=== PATIENT | male | born 1980 | race Caucasian/White ===

== ENCOUNTER 2018-03-25 00:55 | Emergency (ER) | payer BC ==
[2018-03-25] MEDS ORDERED: LORazepam 1 MG Tab PO ONE (00:56)
[2018-03-25] MEDS ORDERED: Aspirin 81 MG Tab.Chew ONE (01:02)
[2018-03-25] MEDS ORDERED: Aspirin 81 MG Tab.Chew PO ONE (01:03)
--- NOTE | 2018-03-25 01:28 | EDM.PDOC ---
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 states pt was very sweaty and bit unsteady and she had to help him get to the car and she drove here. presently pt states feels ok pain better was given ASA. Left Anterior Chest Pain Score (Numeric/FACES): 6 - Related Data Allergies Allergy/AdvReac Type Severity Reaction Status Date / Time No Known Allergies Allergy Verified 03/25/18 01:29 Home Meds: Home Meds . [No Known Home Meds] 03/25/18 [History] ED ROS GENERAL - Review of Systems Review Of Systems: ROS reveals no pertinent complaints other than HPI. ED EXAM, GENERAL - Physical Exam Exam: See Below Exam Limited By: No Limitations General Appearance: Alert, WD/WN, No Apparent Distress, Anxious, Mild Distress Eye Exam: Bilateral Eye: PERRL (pupils ER @ 5mm) Ears: Hearing Grossly Normal Throat/Mouth: Normal Voice, No Airway Compromise Head: Atraumatic Neck: Non-Tender, Full Range of Motion Respiratory/Chest: No Respiratory Distress Cardiovascular: Regular Rate, Rhythm GI/Abdominal: Soft, Non-Tender Neurological: Alert, Oriented, Normal Cognition, Normal Gait, No Motor/Sensory Deficits Psychiatric: Anxious Skin Exam: Warm, Dry, Normal Color Lymphatic: No Adenopathy Course - Vital Signs Last Recorded V/S: Last Vital Signs Temp 36.4 C 03/25/18 01:18 Pulse 67 03/25/18 01:18 Resp 16 03/25/18 01:18 BP 128/81 03/25/18 01:18 Pulse Ox 100 03/25/18 01:18 - Orders/Labs/Meds Orders: Active Orders 24 hr Category Date Time Status EKG Documentation Completion [RC] STAT Care 03/25/18 01:21 Active Meclizine [Antivert] Med 03/25/18 02:50 Once 12.5 mg PO ONETIME ONE Labs: Laboratory Tests 03/25/18 03/25/18 03/25/18 Range/Units 01:10 01:10 01:10 WBC 8.9 (5.0-10.0) 10^3/uL RBC 4.58 L (4.6-6.2) 10^6/uL Hgb 14.2 (14.0-18.0) g/dL Hct 39.7 L (40.0-54.0) % MCV 86.7 (80-100) fL MCH 31.0 (27.0-34.0) pg MCHC 35.8 H (33.0-35.0) g/dL Plt Count 197 (150-450) 10^3/uL Neut % (Auto) 47.2 (42.2-75.2) % Lymph % (Auto) 40.8 (20.5-50.1) % [place] % (Auto) 8.5 H (2-8) % Eos % (Auto) 3.1 H (1.0-3.0) % Baso % (Auto) 0.4 (0.0-1.0) % D-Dimer, Quantitative < 100 (0-400) ng/mL Sodium 137 (135-145) mmol/L Potassium 3.2 L (3.6-5.0) mmol/L Chloride 104 (101-111) mmol/L Carbon Dioxide 27.0 (21.0-31.0) mmol/L Anion Gap 9.2 BUN 20 H (7-18) mg/dL Creatinine 1.2 (0.6-1.3) mg/dL Est Cr Clr Drug Dosing 86.18 mL/min Estimated GFR (MDRD) > 60 BUN/Creatinine Ratio 16.66 Glucose 117 H (74-105) mg/dL Calcium 9.0 (8.4-10.2) mg/dl Total Bilirubin 0.9 (0.2-1.0) mg/dL AST 33 (10-42) IU/L ALT 32 (10-60) IU/L Alkaline Phosphatase 59 (42-121) IU/L Troponin I < 0.02 (0.00-0.02) ng/ml Total Protein 6.8 (6.7-8.2) g/dl Albumin 4.1 (3.2-5.5) g/dl Globulin 2.7 Albumin/Globulin Ratio 1.52 Meds: Medications Discontinued Medications Generic Name Dose Route Start Last Admin Trade Name Evi PRN Reason Stop Dose Admin Aspirin Confirm 03/25/18 01:02 03/25/18 01:06 Aspirin Administered 03/25/18 01:03 Not Given Dose 324 mg .ROUTE .STK-MED ONE Aspirin 324 mg 03/25/18 01:03 03/25/18 01:05 Aspirin PO 03/25/18 01:04 324 mg ONETIME ONE Administration - Re-Assessments/Exams Free Text/Narrative Re-Assessment/Exam: 03/25/18 02:04 results discussed with pt & spouse. 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 03/25/18 02:50 re-exam; still pain free but feel little dizzy when moves. spouse states pt is under lot of stress and over worked. Departure - Departure Time of Disposition: 02:51 Disposition: Home, Self-Care 01 Condition: Good Clinical Impression: Atypical chest pain, Reaction, situational, acute, to stress Instructions: Nonspecific Chest Pain, [id number] Forms: ED Department Discharge Additional Instructions: 1) rest 2) see clinic in the morning for STRESS TEST. ECHOCARDIOGRAM. HOLTER MONITOR 3) return if there is any change or concern - My Orders Last 24 Hours: My Active Orders 03/25/18 01:21 EKG Documentation Completion [RC] STAT 03/25/18 02:50 Meclizine [Antivert] 12.5 mg PO ONETIME ONE - Assessment/Plan Last 24 Hours: My Active Orders 03/25/18 01:21 EKG Documentation Completion [RC] STAT 03/25/18 02:50 Meclizine [Antivert] 12.5 mg PO ONETIME ONE
[2018-03-25 01:40] LABS: CHLORIDE,CL 104 mmol/L (101-111); SODIUM,NA 137 mmol/L (135-145)
[2018-03-25] MEDS ORDERED: LORazepam 1 MG Tab ONE (02:52)
[2018-03-25] MEDS: Meclizine 12.5 MG Tab PO ONE ×2 (02:57→02:59)
[2018-03-25] MEDS ORDERED: Meclizine 12.5 MG Tab ONE (02:58)
--- NOTE | 2018-03-26 08:14 | EKG ---
03/25/2018- FARIDEH ENRIQUEZ - FINDINGS: EKG per my reading, shows sinus rhythm at a rate of 63. [facility] /[id number]
== END 2018-03-25 03:06 | disposition home or self-care (01) ==
LOC: DL.ED 00:55
DX: F43.0 Acute stress reaction (principal); R07.89 Other chest pain
CPT/HCPCS: 36415; 71045; 80053; 84484; 85025; 85379; 93005; 99285; A9270

== ENCOUNTER 2019-01-27 05:58 | Emergency (ER) | payer BC ==
--- NOTE | 2019-01-27 06:20 | EDM.PDOC ---
<Romero Arroyo - Last Filed: 01/27/19 06:16> ED HPI GENERAL MEDICAL PROBLEM - General Chief Complaint: Respiratory Problem Stated Complaint: LEFT SIDE NUMBNESS [id number] Time Seen by Provider: 01/27/19 06:16 Source of Information: Reports: Patient History Limitations: Reports: No Limitations - History of Present Illness INITIAL COMMENTS - FREE TEXT/NARRATIVE: woke up with left arm numbness, had same last year and eval' here with f/u stress [id number] all were told normal. just flew [employer] from [employer] 2 days ago. denies CP/SOB perse. 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 ED EXAM, GENERAL - Physical Exam Exam: See Below Exam Limited By: No Limitations General Appearance: Alert, WD/WN, Anxious, Mild Distress Ears: Hearing Grossly Normal Throat/Mouth: Normal Voice, No Airway Compromise Head: Atraumatic Neck: Non-Tender, Full Range of Motion Respiratory/Chest: No Respiratory Distress Cardiovascular: Regular Rate, Rhythm GI/Abdominal: Soft, Non-Tender Extremities: Normal Range of Motion Neurological: Alert, Oriented, Normal Cognition, Normal Gait, No Motor/Sensory Deficits Psychiatric: Normal Affect, Normal Mood Skin Exam: Warm, Dry, Normal Color Lymphatic: No Adenopathy Course - Vital Signs Last Recorded V/S: Last Vital Signs Temp 36.4 C 01/27/19 06:04 Pulse 78 01/27/19 06:04 Resp 19 01/27/19 06:04 BP 146/83 H 01/27/19 06:04 Pulse Ox 100 01/27/19 06:04 - Orders/Labs/Meds Orders: Active Orders 24 hr Category Date Time Status EKG 12 Lead [EKG Documentation Completion] [RC] STAT Care 01/27/19 06:11 Active Labs: Laboratory Tests 01/27/19 01/27/19 01/27/19 Range/Units 06:20 06:20 06:20 WBC 6.6 (5.0-10.0) 10^3/uL RBC 4.83 (4.6-6.2) 10^6/uL Hgb 14.7 (14.0-18.0) g/dL Hct 41.3 (40.0-54.0) % MCV 85.5 (80-100) fL MCH 30.4 (27.0-34.0) pg MCHC 35.6 H (33.0-35.0) g/dL Plt Count 205 (150-450) 10^3/uL Neut % (Auto) 53.4 (42.2-75.2) % Lymph % (Auto) 33.0 (20.5-50.1) % [place] % (Auto) 8.4 H (2-8) % Eos % (Auto) 4.4 H (1.0-3.0) % Baso % (Auto) 0.8 (0.0-1.0) % D-Dimer, Quantitative < 100 (0-400) ng/mL Sodium 137 (135-145) mmol/L Potassium 3.5 L (3.6-5.0) mmol/L Chloride 103 (101-111) mmol/L Carbon Dioxide 23.0 (21.0-31.0) mmol/L Anion Gap 14.5 BUN 14 (7-18) mg/dL Creatinine 1.1 (0.6-1.3) mg/dL Est Cr Clr Drug Dosing 93.09 mL/min Estimated GFR (MDRD) > 60 BUN/Creatinine Ratio 12.72 Glucose 101 (74-105) mg/dL Calcium 8.8 (8.4-10.2) mg/dl Total Bilirubin 1.2 H (0.2-1.0) mg/dL AST 44 H (10-42) IU/L ALT 53 (10-60) IU/L Alkaline Phosphatase 56 (42-121) IU/L Troponin I < 0.02 (0.00-0.02) ng/ml Total Protein 6.8 (6.7-8.2) g/dl Albumin 3.8 (3.2-5.5) g/dl Globulin 3.0 Albumin/Globulin Ratio 1.27 01/27/ Range/Units 09:01 WBC (5.0-10.0) 10^3/uL RBC (4.6-6.2) 10^6/uL Hgb (14.0-18.0) g/dL Hct (40.0-54.0) % MCV (80-100) fL MCH (27.0-34.0) pg MCHC (33.0-35.0) g/dL Plt Count (150-450) 10^3/uL Neut % (Auto) (42.2-75.2) % Lymph % (Auto) (20.5-50.1) % [place] % (Auto) (2-8) % Eos % (Auto) (1.0-3.0) % Baso % (Auto) (0.0-1.0) % D-Dimer, Quantitative (0-400) ng/mL Sodium (135-145) mmol/L Potassium (3.6-5.0) mmol/L Chloride (101-111) mmol/L Carbon Dioxide (21.0-31.0) mmol/L Anion Gap BUN (7-18) mg/dL Creatinine (0.6-1.3) mg/dL Est Cr Clr Drug Dosing mL/min Estimated GFR (MDRD) BUN/Creatinine Ratio Glucose (74-105) mg/dL Calcium (8.4-10.2) mg/dl Total Bilirubin (0.2-1.0) mg/dL AST (10-42) IU/L ALT (10-60) IU/L Alkaline Phosphatase (42-121) IU/L Troponin I < 0.02 (0.00-0.02) ng/ml Total Protein (6.7-8.2) g/dl Albumin (3.2-5.5) g/dl Globulin Albumin/Globulin Ratio Departure - Departure Disposition: Home, Self-Care 01 Clinical Impression: Left upper extremity numbness, Peripheral neuropathy - Discharge Information Instructions: Peripheral Neuropathy Forms: ED Department Discharge Care Plan Goals: The patient was advised of the examination, lab, EKG, chest x-ray and repeat lab results during the visit. The patient was encouraged to follow-up with his chiropractor or primary care facility for continued symptoms. If the patient has any additional symptoms or concerns, the patient should either return to the emergency department or visit his primary care facility. <Rigoberto Dumont M - Last Filed: 01/27/19 09:46> Course - Re-Assessments/Exams Free Text/Narrative Re-Assessment/Exam: 01/27/19 07:18 Patient care was taken over at shift change. The patient reports his left arm continues to have some numbness, but is feeling better than when he came into the ED. The patient reports he started noticing symptoms at about 0500 this morning with his symptoms continuing to about 0600 when he presented to the ED. Departure - Departure Time of Disposition: 09:43 Condition: Good - Discharge Information *PRESCRIPTION DRUG MONITORING PROGRAM REVIEWED*: Not Applicable *COPY OF PRESCRIPTION DRUG MONITORING REPORT IN PATIENT ALFRED: Not Applicable
[2019-01-27 06:52] LABS: ANION GAP 14.5; CHLORIDE,CL 103 mmol/L (101-111); SODIUM,NA 137 mmol/L (135-145)
== END 2019-01-27 09:50 | disposition home or self-care (01) ==
LOC: DL.ED 05:58
DX: R20.0 Anesthesia of skin (principal); G62.9 Polyneuropathy, unspecified; E78.00 Pure hypercholesterolemia, unspecified; Z79.82 Long term (current) use of aspirin; Z79.899 Other long term (current) drug therapy
CPT/HCPCS: 36415; 71045; 80053; 84484; 85025; 85379; 93005; 99284-25

== ENCOUNTER 2020-12-26 01:10 | Emergency (ER) | payer BC ==
--- NOTE | 2020-12-26 01:20 | EDM.PDOC ---
ED HPI GENERAL MEDICAL PROBLEM - General Chief Complaint: Cardiovascular Problem Stated Complaint: HIGH BLOOD PRESSURE Time Seen by Provider: 12/26/20 01:20 Source of Information: Reports: Patient, Old Records, RN, RN Notes Reviewed History Limitations: Reports: No Limitations - History of Present Illness INITIAL COMMENTS - FREE TEXT/NARRATIVE: Patient is a 40-year-old male who presents to ER with complaint of high blood pressure and chest pain. Patient states he did have a short episode of chest pain at home, midsternal. States he checked his blood pressure at that time and it was 140s over 90s. Patient states he has had chest pains on and off, anytime of the day for the past few years. Patient had a very similar episode that brought him to the ER in March 2018. States he did get sweaty and dizzy, with the midsternal chest pain. Patient states he thinks he may be overthinking things and may have some issues with anxiety as well. States his [id number] is in the hospital right now and had a massive stroke. Patient appears very anxious and jittery. Patient is pain free upon arrival to the ER. Pt states he took 3 aspirin prior to arrival. Patient states his brother in law is in the hospital right now and was on life support due to hypertension/stroke. Brother in law was taken off life support today. He states that has been weighing heavily on his mind. 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 - Related Data Allergies Allergy/AdvReac Type Severity Reaction Status Date / Time No Known Allergies Allergy Verified 12/26/20 01:16 Home Meds: Home Meds Aspirin [Adult Low Dose Aspirin EC] 81 mg PO DAILY 01/27/19 [History] Fish Oil/[place]-3 Fatty Acids [Fish Oil] 1 each PO DAILY 01/27/19 [History] Past Medical History Cardiovascular History: Reports: High Cholesterol Psychiatric History: Reports: Anxiety Social & Family History - Family History Family Medical History: No Pertinent Family History - Tobacco Use Tobacco Use Status *Q: Never Tobacco User Second Hand Smoke Exposure: No - Caffeine Use Caffeine Use: Reports: Coffee, Energy Drinks - Recreational Drug Use Recreational Drug Use: No ED ROS GENERAL - Review of Systems Review Of Systems: Comprehensive ROS is negative, except as noted in HPI. ED EXAM, GENERAL - Physical Exam Exam: See Below Exam Limited By: No Limitations General Appearance: Alert, WD/WN, Anxious, Mild Distress Eye Exam: Bilateral Eye: EOMI, Normal Inspection Ears: Normal External Exam, Hearing Grossly Normal Nose: Normal Inspection Throat/Mouth: Normal Inspection, Normal Voice, No Airway Compromise Head: Atraumatic, Normocephalic Neck: Normal Inspection, Supple, Non-Tender, Full Range of Motion Respiratory/Chest: No Respiratory Distress, Lungs Clear, Normal Breath Sounds, No Accessory Muscle Use, Chest Non-Tender, Other (Pt has a "grunting sound" with expiration) Cardiovascular: Normal Peripheral Pulses, Regular Rate, Rhythm, No Edema, No Gallop, No JVD, No Murmur, No Rub Peripheral Pulses: 2+: Radial (L), Radial (R) GI/Abdominal: Normal Bowel Sounds, Soft, Non-Tender (Male) Exam: Deferred Rectal (Males) Exam: Deferred Back Exam: Normal Inspection, Full Range of Motion, Other (states recent back pain) Extremities: Normal Inspection, Normal Range of Motion, Non-Tender, No Pedal Edema, Normal Capillary Refill Neurological: Alert, Oriented, CN II-XII Intact, Normal Cognition, Normal Gait, Normal Reflexes, No Motor/Sensory Deficits Psychiatric: Anxious, Other (very anxious and jittery) Skin Exam: Warm, Dry, Intact, Normal Color, No Rash Lymphatic: No Adenopathy Course - Vital Signs Last Recorded V/S: Last Vital Signs Temp 98 F 12/26/20 01:12 Pulse 71 12/26/20 01:12 Resp 18 12/26/20 01:12 BP 144/91 H 12/26/20 01:12 Pulse Ox 98 12/26/20 01:12 - Orders/Labs/Meds Labs: Laboratory Tests 12/26/20 12/26/20 12/26/20 Range/Units 01:25 01:25 01:25 WBC 7.8 (5.0-10.0) 10^3/uL RBC 4.96 (4.6-6.2) 10^6/uL Hgb 15.0 (14.0-18.0) g/dL Hct 41.9 (40.0-54.0) % MCV 84.5 (80-100) fL MCH 30.2 (27.0-34.0) pg MCHC 35.8 H (33.0-35.0) g/dL Plt Count 224 (150-450) 10^3/uL Neut % (Auto) 50.9 (42.2-75.2) % Lymph % (Auto) 35.3 (20.5-50.1) % [place] % (Auto) 9.1 H (2-8) % Eos % (Auto) 3.8 H (1.0-3.0) % Baso % (Auto) 0.9 (0.0-1.0) % D-Dimer, Quantitative < 100 (0-400) ng/mL Sodium 139 (136-145) mmol/L Potassium 3.7 (3.5-5.1) mmol/L Chloride 101 (98-107) mmol/L Carbon Dioxide 26 (21-32) mmol/L Anion Gap 15.7 H (7-13) mEq/L BUN 16 (7-18) mg/dL Creatinine 1.06 (0.70-1.30) mg/dL Est Cr Clr Drug Dosing 94.69 mL/min Estimated GFR (MDRD) > 60 BUN/Creatinine Ratio 15.1 (No establ ref range) Glucose 114 H (74-99) mg/dL Calcium 8.9 (8.5-10.1) mg/dL Total Bilirubin 0.6 (0.2-1.0) mg/dL AST 37 (15-37) U/L ALT 93 H (16-63) U/L Alkaline Phosphatase 71 (46-116) U/L Troponin I < 0.017 (0.000-0.056) ng/mL Total Protein 7.9 (6.4-8.2) g/dL Albumin 4.1 (3.4-5.0) g/dL Globulin 3.8 Albumin/Globulin Ratio 1.1 - Radiology Interpretation Free Text/Narrative:: Chest xray: No acute findings See rad report Departure - Departure Time of Disposition: 02:37 Disposition: Home, Self-Care 01 Reason for Transfer *Q: Other Condition: Good Clinical Impression: Atypical chest pain, Anxiety Instructions: Chest Wall Pain, Ymfq-[id number], Nonspecific Chest Pain, Adult, Wtnq-db-[id number], Hypertension, Adult, Lgdz-[id number], Managing Anxiety, Adult Forms: ED Department Discharge Additional Instructions: Make an appointment with your primary care facility Return to the ER with any worsening of problems Sepsis Event Note (ED) - Evaluation Sepsis Screening Result: No Definite Risk - Focused Exam Vital Signs: Vital Signs Temp Pulse Resp BP Pulse Ox 12/26/20 01:12 98 F 71 18 144/91 H 98
[2020-12-26 01:49] LABS: ANION GAP 15.7 mEq/L (7-13); CHLORIDE,CL 101 mmol/L (98-107); SODIUM,NA 139 mmol/L (136-145)
--- NOTE | 2020-12-26 02:16 | CR ---
PROCEDURE INFORMATION: Exam: XR Chest, 1 View Exam date and time: 12/26/2020 2:13 AM Age: 40 years old Clinical indication: Other: Chest pain TECHNIQUE: Imaging protocol: XR of the chest Views: 1 view. COMPARISON: CR Chest 1V Frontal 01/27/2019 6:43 AM FINDINGS: Lungs: Unremarkable. No consolidation. Pleural spaces: Unremarkable. No pleural effusion. No pneumothorax. Heart/Mediastinum: Unremarkable. No cardiomegaly. Bones/joints: Unremarkable. IMPRESSION: No acute findings.
== END 2020-12-26 02:36 | disposition home or self-care (01) ==
LOC: DL.ED 01:10
DX: F41.9 Anxiety disorder, unspecified (principal); Z79.82 Long term (current) use of aspirin
CPT/HCPCS: 36415; 71045; 80053; 84484; 85025; 85379; 93005; 99285-25

== ENCOUNTER 2021-03-29 22:11 | Emergency (ER) | payer BC ==
[2021-03-29 23:01] LABS: ANION GAP 13.5 mEq/L (7-13); CHLORIDE,CL 101 mmol/L (98-107); SODIUM,NA 141 mmol/L (136-145)
[2021-03-29] MEDS ORDERED: Famotidine 20 MG/2 ML SDV IVPUSH ONE (23:29)
[2021-03-29] MEDS ORDERED: Sodium Chloride 0.9% 1,000 ML IV ONE (23:29)
[2021-03-29] MEDS ORDERED: Ondansetron 4 MG/2 ML SDV IVPUSH ONE (23:29)
--- NOTE | 2021-03-29 23:31 | CR ---
PROCEDURE INFORMATION: Exam: XR Chest Exam date and time: 03/29/2021 10:46 PM Age: 40 years old Clinical indication: Other: Chest pain TECHNIQUE: Imaging protocol: XR of the chest. Views: 1 view. COMPARISON: CR Chest 1V Frontal 12/26/2020 2:13 AM FINDINGS: Lungs: Unremarkable. No consolidation. Pleural spaces: Unremarkable. No pleural effusion. No pneumothorax. Heart/Mediastinum: Unremarkable. No cardiomegaly. Bones/joints: Unremarkable. IMPRESSION: No acute findings.
--- NOTE | 2021-03-30 03:01 | EDM.PDOC ---
ED HPI GENERAL MEDICAL PROBLEM - General Chief Complaint: Chest Pain Stated Complaint: CHEST PAIN, DIZZYNESS, NAUSEA Time Seen by Provider: 03/29/21 22:25 Source of Information: Reports: Patient, RN History Limitations: Reports: No Limitations - History of Present Illness INITIAL COMMENTS - FREE TEXT/NARRATIVE: ED ambulatory with c/o intermittent chest pain for past month, present past 2 hours points epigastric mild nausea tonight. Notes at times in left chest and other times right upper chest. no SOB. No vomiting. Tingling left arm, has had previously. Dizziness wth position change. no fever chills or cough. Mid-Sternal Chest Pain Score (Numeric/FACES): 2 - Related Data Allergies Allergy/AdvReac Type Severity Reaction Status Date / Time No Known Allergies Allergy Verified 12/26/20 01:16 Home Meds: Home Meds Aspirin [Adult Low Dose Aspirin EC] 81 mg PO DAILY 01/27/19 [History] Fish Oil/[place]-3 Fatty Acids [Fish Oil] 1 each PO DAILY 01/27/19 [History] Past Medical History - Past Health History Medical/Surgical History: Denies Medical/Surgical History Cardiovascular History: Reports: High Cholesterol Psychiatric History: Reports: Anxiety - Past Surgical History HEENT Surgical History: Reports: Adenoidectomy Social & Family History - Family History Family Medical History: No Pertinent Family History - Tobacco Use Tobacco Use Status *Q: Never Tobacco User Second Hand Smoke Exposure: No - Caffeine Use Caffeine Use: Reports: Coffee, Energy Drinks - Recreational Drug Use Recreational Drug Use: No ED ROS GENERAL - Review of Systems Review Of Systems: Comprehensive ROS is negative, except as noted in HPI. ED EXAM, GENERAL - Physical Exam Exam: See Below Exam Limited By: No Limitations General Appearance: Alert, No Apparent Distress, Anxious Eye Exam: Bilateral Eye: EOMI Ears: Normal External Exam, Hearing Grossly Normal Nose: Normal Inspection Throat/Mouth: Normal Inspection Head: Atraumatic, Normocephalic Neck: Normal Inspection Respiratory/Chest: No Respiratory Distress, Lungs Clear, Normal Breath Sounds Cardiovascular: Normal Peripheral Pulses, Regular Rate, Rhythm GI/Abdominal: Normal Bowel Sounds, Soft, Other (mild epigastric discomfort) Back Exam: Full Range of Motion Extremities: Normal Inspection Neurological: Alert, Oriented, Normal Cognition, Normal Gait Skin Exam: Warm, Dry, Intact, Normal Color #1 Interpretation EKG Date: 03/29/21 Time: 02:28 Rhythm: NSR Rate (Beats/Min): 58 [place]: Normal P-Wave: Present QRS: Normal ST-T: Normal Comparison: No Change #2 Interpretation EKG Date: 03/30/21 Time: 02:48 Rhythm: NSR Rate (Beats/Min): 60 [place]: Normal P-Wave: Present QRS: Normal ST-T: Normal Comparison: No Change Course - Vital Signs Last Recorded V/S: Last Vital Signs Temp 97.4 F 03/29/21 22:21 Pulse 76 03/29/21 22:21 Resp 18 03/29/21 22:21 BP 138/96 H 03/29/21 22: Pulse Ox 98 03/29/21 22:21 Orthostatic Blood Pressure [ 109/75 Standing] Orthostatic Blood Pressure [ 123/82 Sitting] Orthostatic Blood Pressure [ 110/91 Supine] - Orders/Labs/Meds Labs: Laboratory Tests 03/29/21 03/29/21 03/29/21 Range/Units 22:31 22:31 22:31 WBC 7.2 (5.0-10.0) 10^3/uL RBC 5.03 (4.6-6.2) 10^6/uL Hgb 15.2 (14.0-18.0) g/dL Hct 43.4 (40.0-54.0) % MCV 86.3 (80-100) fL MCH 30.2 (27.0-34.0) pg MCHC 35.0 (33.0-35.0) g/dL Plt Count 240 (150-450) 10^3/uL Neut % (Auto) 46.5 (42.2-75.2) % Lymph % (Auto) 38.1 (20.5-50.1) % [place] % (Auto) 10.1 H (2-8) % Eos % (Auto) 4.6 H (1.0-3.0) % Baso % (Auto) 0.7 (0.0-1.0) % PT 10.5 (9.0-12.0) SEC INR 1.0 (0.9-1.2) D-Dimer, Quantitative 137 (0-400) ng/mL Sodium 141 (136-145) mmol/L Potassium 3.5 (3.5-5.1) mmol/L Chloride 101 (98-107) mmol/L Carbon Dioxide 30 (21-32) mmol/L Anion Gap 13.5 H (7-13) mEq/L BUN 15 (7-18) mg/dL Creatinine 1.22 (0.70-1.30) mg/dL Est Cr Clr Drug Dosing 82.27 mL/min Estimated GFR (MDRD) > 60 BUN/Creatinine Ratio 12.3 (No establ ref range) Glucose 96 (70-99) mg/dL Calcium 8.4 L (8.5-10.1) mg/dL Total Bilirubin 1.1 H (0.2-1.0) mg/dL AST 33 (15-37) U/L ALT 81 H (16-63) U/L Alkaline Phosphatase 70 (46-116) U/L Troponin I < 0.017 (0.000-0.056) ng/mL Total Protein 7.4 (6.4-8.2) g/dL Albumin 3.9 (3.4-5.0) g/dL Globulin 3.5 Albumin/Globulin Ratio 1.1 05//21 Range/Units 02:28 WBC (5.0-10.0) 10^3/uL RBC (4.6-6.2) 10^6/uL Hgb (14.0-18.0) g/dL Hct (40.0-54.0) % MCV (80-100) fL MCH (27.0-34.0) pg MCHC (33.0-35.0) g/dL Plt Count (150-450) 10^3/uL Neut % (Auto) (42.2-75.2) % Lymph % (Auto) (20.5-50.1) % [place] % (Auto) (2-8) % Eos % (Auto) (1.0-3.0) % Baso % (Auto) (0.0-1.0) % PT (9.0-12.0) SEC INR (0.9-1.2) D-Dimer, Quantitative (0-400) ng/mL Sodium (136-145) mmol/L Potassium (3.5-5.1) mmol/L Chloride (98-107) mmol/L Carbon Dioxide (21-32) mmol/L Anion Gap (7-13) mEq/L BUN (7-18) mg/dL Creatinine (0.70-1.30) mg/dL Est Cr Clr Drug Dosing mL/min Estimated GFR (MDRD) BUN/Creatinine Ratio (No establ ref range) Glucose (70-99) mg/dL Calcium (8.5-10.1) mg/dL Total Bilirubin (0.2-1.0) mg/dL AST (15-37) U/L ALT (16-63) U/L Alkaline Phosphatase (46-116) U/L Troponin I < 0.017 (0.000-0.056) ng/mL Total Protein (6.4-8.2) g/dL Albumin (3.4-5.0) g/dL Globulin Albumin/Globulin Ratio Meds: Medications Discontinued Medications Generic Name Dose Route Start Last Admin Trade Name Freq PRN Reason Stop Dose Admin Famotidine 20 mg 03/29/21 23:29 03/29/21 23:42 Famotidine 20 Mg/2 Ml Sdv IVPUSH 03/29/21 23:30 20 mg ONETIME ONE Administration Sodium Chloride 1,000 mls @ 999 mls/hr 03/29/21 23:29 03/29/21 23:39 Normal Saline IV 03/30/21 00:29 999 mls/hr .BOLUS ONE Administration Ondansetron HCl 4 mg 03/29/21 23:29 03/29/21 23:40 Ondansetron 4 Mg/2 Ml Sdv IVPUSH 03/29/21 23:30 4 mg ONETIME ONE Administration - Re-Assessments/Exams Free Text/Narrative Re-Assessment/Exam: 03/30/21 03:01 Symptoms improved, Dizziness resolved following IVF. Departure - Departure Time of Disposition: 03:02 Disposition: Home, Self-Care 01 Condition: Good Clinical Impression: Non-cardiac chest pain Instructions: Nonspecific Chest Pain, Adult Forms: ED Department Discharge Additional Instructions: [place] diet Clinic follow up Urgent follow up if symptoms worsen Sepsis Event Note (ED) - Evaluation Sepsis Screening Result: No Definite Risk - Focused Exam Vital Signs: Vital Signs Temp Pulse Resp BP Pulse Ox 03/29/21 22:21 97.4 F 76 18 138/96 H 98
== END 2021-03-30 03:13 | disposition home or self-care (01) ==
LOC: DL.ED 22:11
DX: R07.89 Other chest pain (principal); Z79.82 Long term (current) use of aspirin
CPT/HCPCS: 36415; 71045; 80053; 84484; 85025; 85379; 85610; 93005; 96374; 96375; 99285; J2405; J3490; J7030